=== PATIENT | male | born 1995 | race Caucasian/White ===

== ENCOUNTER 2019-02-16 16:23 | Emergency (ER) | payer OTHER ==
[2019-02-16 16:40] VITALS: BP 140/82
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
== END 2019-02-16 17:55 | disposition home or self-care (01) ==
LOC: ED 16:23
DX: S20.219A Contusion of unspecified front wall of thorax, initial encounter (principal); V53.5XXA Driver of pick-up truck or van injured in collision with car, pick-up truck or van in traffic accident, initial encounter; Y92.410 Unspecified street and highway as the place of occurrence of the external cause
CPT/HCPCS: 71046; 93005; 99283

== ENCOUNTER 2021-01-26 17:33 | Emergency (ER) | payer OTHER ==
[2021-01-26 17:43] VITALS: BP 124/68
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
== END 2021-01-26 18:25 | disposition home or self-care (01) ==
LOC: ED 17:33
DX: S46.911A Strain of unspecified muscle, fascia and tendon at shoulder and upper arm level, right arm, initial encounter (principal); S70.01XA Contusion of right hip, initial encounter; V28.4XXA Motorcycle driver injured in noncollision transport accident in traffic accident, initial encounter; Y92.410 Unspecified street and highway as the place of occurrence of the external cause
CPT/HCPCS: 99281; 99282

== ENCOUNTER 2021-04-18 12:37 | Emergency (ER) | payer OTHER ==
[2021-04-18 13:07] LABS: BASOPHILS % (AUTO) 0.1 %; EOSINOPHILS # (AUTO) 0.1 10^3/uL (0.0-0.7); EOSINOPHILS % (AUTO) 0.6 %; HCT - HEMATOCRIT 49.1 % (42.0-52.0); HGB - HEMOGLOBIN 17.5 g/dL (14.0-18.0); LYMPHOCYTES # (AUTO) 1.8 10^3/uL (1.5-3.5); LYMPHOCYTES % (AUTO) 16.5 %; MEAN CORPUSCULAR HEMOGLOBIN 31.1 pg (27.0-31.0); MEAN CORPUSCULAR HGB CONC 35.6 g/dL (32.0-36.0); MEAN CORPUSCULAR VOLUME 87.2 fL (80.0-94.0); MEAN PLATELET VOLUME 9.2 fL (7.4-11.4); MONOCYTES # (AUTO) 0.6 10^3/uL (0.0-1.0); MONOCYTES % (AUTO) 5.7 %; NEUTROPHILS # (AUTO) 8.2 10^3/uL (1.5-6.6); NEUTROPHILS % (AUTO) 76.9 %; PLT - PLATELET COUNT 319 10^3/uL (130-450); RED BLOOD COUNT 5.63 10^6/uL (4.70-6.10); WHITE BLOOD COUNT 10.6 x10^3/uL (4.8-10.8)
[2021-04-18 13:20] LABS: ALBUMIN 4.8 g/dL (3.2-5.5); ALBUMIN/GLOBULIN RATIO 1.6 (1.0-2.2); BILIRUBIN,TOTAL 2.2 mg/dL (0.2-1.0); CALCIUM 10.1 mg/dL (8.5-10.3); POTASSIUM 3.8 mmol/L (3.5-5.0); TOTAL PROTEIN 7.8 g/dL (6.7-8.2)
[2021-04-18] MEDS ORDERED: ONDANSETRON ODT 4 MG TABLET TL STA (15:24)
[2021-04-18] MEDS ORDERED: FAMOTIDINE 20 MG TABLET PO STA (15:24)
--- NOTE | 2021-04-18 15:24 | ED Physician Documentation ---
History of Present Illness - Stated complaint Stated Complaint: NAUSEA,ABD PX - Chief complaint Chief Complaint: Abd Pain - Additonal information Additional information: 25-year-old male presents emergency department for evaluation of 24 hours abdominal pain. He reports periumbilical pain but points to his epigastrium as the source of discomfort. He reports that the pain has been constant. He has had nausea but no vomiting. No fevers. No melena hematochezia. Denies dysuria urgency frequency. No hematuria. Pain did worsen this morning when he attempted to eat. Described as sharp. No history of similar in the past. No pertinent past surgical history. Takes no prescribed medications. Denies alcohol or tobacco use. Does not use NSAID medications routinely. Review of Systems Constitutional: denies: Fever, Chills Eyes: reports: Reviewed and negative Throat: reports: Reviewed and negative Cardiac: reports: Reviewed and negative Respiratory: reports: Reviewed and negative GI: reports: Abdominal Pain, Nausea. denies: Vomiting, Hematemesis, Bloody / black stool : reports: Reviewed and negative Skin: reports: Reviewed and negative Musculoskeletal: reports: Reviewed and negative PD PAST MEDICAL HISTORY - Past Surgical History Past Surgical History: No - Allergies Allergies/Adverse Reactions: Allergies Allergy/AdvReac Type Severity Reaction Status Date / Time No Known Drug Allergies Allergy Verified 04/18/21 12:52 - Social History Does the pt smoke?: No Smoking Status: Never smoker Does the pt drink ETOH?: No Does the pt have substance abuse?: No - Immunizations Immunizations are current?: No - POLST Patient has POLST: No PD ED PE NORMAL - General General: Alert and oriented X 3, No acute distress - HEENT HEENT: PERRL - Neck Neck: Supple, no meningeal sign, No adenopathy - Cardiac Cardiac: RRR, No murmur, No gallop - Respiratory Respiratory: No respiratory distress, Clear bilaterally - Abdomen Abdomen: Normal bowel sounds, Soft. No: Non tender (Mild tenderness to the epigastrium. Negative Khan's. Negative McBurney's. Unable to elicit any tenderness in the right lower quadrant with deep or light palpation or percussion.) - Back Back: No CVA TTP - Derm Derm: Normal color, Warm and dry, No rash - Extremities Extremities: No deformity Results - Vitals Vitals: Vital Signs - 24 hr 04/18/21 04/18/21 12:49 14:48 Temperature 36.6 C 36.6 C Heart Rate 67 81 Respiratory 16 16 Rate Blood Pressure 130/88 H 126/80 O2 Saturation 99 98 Oxygen O2 Source Room air - Labs Labs: Laboratory Tests 04/18/21 04/18/21 13:03 13:03 WBC 10.6 RBC 5.63 Hgb 17.5 Hct 49.1 MCV 87.2 MCH 31.1 H MCHC 35.6 RDW 12.0 Plt Count 319 MPV 9.2 Neut # (Auto) 8.2 H Lymph # (Auto) 1.8 Archuleta # (Auto) 0.6 Eos # (Auto) 0.1 Baso # (Auto) 0.0 Absolute Nucleated RBC 0.00 Nucleated RBC % 0.0 Sodium 139 Potassium 3.8 Chloride 99 L Carbon Dioxide 28 Anion Gap 12.0 BUN 14 Creatinine 1.0 Estimated GFR (MDRD) 92 Glucose 103 H Calcium 10.1 Total Bilirubin 2.2 H AST 21 ALT 35 Alkaline Phosphatase 64 Total Protein 7.8 Albumin 4.8 Globulin 3.0 Albumin/Globulin Ratio 1.6 Lipase 22 - Rads (name of study) abd US Radiology: Final report received (Unremarkable abdominal ultrasound of the gallbladder and liver) PD MEDICAL DECISION MAKING - ED course Complexity details: reviewed results, re-evaluated patient, considered differential, d/w patient ED course: 25-year-old male presents emergency department for evaluation of 24 hours of nausea and upper abdominal pain in the epigastrium. On exam I was unable to elicit a positive Khan's. He had no pain in the lower abdomen right lower quadrant. No dysuria urgency or frequency. He has had some persistent nausea. Screening labs did not show any worrisome abnormalities with the exception of a bilirubin of 2.2. Patient denies any Personal or family history of Gilbert's syndrome. We did do an abdominal ultrasound did not not show any findings of biliary obstruction or cholecystitis/cholelithiasis. Given lack of fever or vomiting or lower abdominal pain I did defer CT imaging today as my suspicion for acute surgical abdomen or appendicitis is rather low. Patient was given Pepcid here in the ER with good improvement in the epigastric pain and nausea. I do suspect he may have a mild gastritis. Will recommend Pepcid and the Zofran at home. Close follow-up with primary care provider to discuss the mildly elevated bilirubin. Departure - Departure Disposition: 01 Home, Self Care Clinical Impression: Epigastric pain, Nausea, Elevated bilirubin Condition: Stable Record reviewed to determine appropriate education?: Yes Comments: Dar you were seen today in the emergency department for about 24 hours of upper abdominal pain and some persistent nausea. Your screening labs do not show any worrisome findings with the exception of a very mild bilirubin elevation of just over 2. We did do an ultrasound of your abdomen to evaluate the liver and gallbladder did not find any thing to suggest gallbladder inflammation or biliary obstruction. There is a condition called Gilbert's disease that can sometimes be familial and cause a mild bilirubin elevation. Please discuss this with your primary doctor. I do suspect that the epigastric pain you had is a mild gastritis. I do recommend that you take an [id number] acid head sampler such as Pepcid once or twice a day for the next 2 to 3 days. Continue to use your Zofran. If at any point you find your symptoms worsen, you develop fevers, have uncontrolled vomiting sudden severe or different pain then please return to the ER for second evaluation.
--- NOTE | 2021-04-18 16:36 | Ultrasound Report ---
PROCEDURE: Abdomen Limited INDICATIONS: elevated bilirubin TECHNIQUE: Real-time focused scanning was performed of the abdomen, with image documentation. COMPARISON: None FINDINGS: Liver is normal in size. Increased liver parenchymal echotexture is seen suggestive of hepatic steato sis. No discrete hepatic lesion. There is no gallstone. No gallbladder wall thickening or pericholecystic fluid. No sonographic Khan 's sign. There is no intrahepatic biliary ductal dilatation. Common bile that measures 2 mm in diameter and is within normal limits. Visualized portion of pancreas shows no gross abnormality. Right kidney measures 12 cm in length and 1.3 cm in renal cortical thickness. No solid-appearing armani l lesion or hydronephrosis. IVC is patent. IMPRESSION: Hepatic steatosis. No discrete hepatic lesion. Normal-appearing gallbladder. No biliary ductal dilata tion. Reviewed by: Jesus Kirk MD on 04/18/2021 4:34 PM PST Approved by: Jesus Kirk MD on 04/18/2021 4:34 PM PST Station ID: [id number]
[2021-04-18 16:39] VITALS: BP 127/86
== END 2021-04-18 16:39 | disposition home or self-care (01) ==
LOC: ED 12:37
DX: R10.13 Epigastric pain (principal); R11.0 Nausea; R79.89 Other specified abnormal findings of blood chemistry
CPT/HCPCS: 36415; 76705; 80053; 83690; 85025; 99282; 99284; A9270; Q0162; 81001; 81003; 87086

== ENCOUNTER 2022-02-07 16:43 | Emergency (ER) | payer OTHER ==
[2022-02-07 17:24] VITALS: BP 126/89
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
== END 2022-02-07 18:42 | disposition home or self-care (01) ==
LOC: ED 16:43
DX: U07.1 COVID-19 (principal); B34.9 Viral infection, unspecified
CPT/HCPCS: 99282; 99283

== ENCOUNTER 2022-03-20 10:14 | Day surgery (SDC) | payer OTHER ==
[2022-03-20] MEDS ORDERED: PROPOFOL 500 MG/50 ML 500 MG/50 ML VIAL ONE (10:26)
[2022-03-20] MEDS ORDERED: LACTATED RINGERS 1,000 ML IV ONE (10:29)
--- NOTE | 2022-03-20 11:00 | ANESTHESIA ---
Pre-Anesthesia VS, & Labs - Diagnosis esquivel syndome - Procedure colonoscopy Vital Signs: Temp Pulse Resp BP Pulse Ox O2 Flow Rate 36.8 C 72 16 128/88 H 95 0 03/20/22 10:29 03/20/22 10:29 03/20/22 10:29 03/20/22 10:29 03/20/22 10:29 03/20/22 10:29 Height: 5 ft 8 in Weight (kg): 86.4 kg Body Mass Index: 28.9 BMI Classification: Overweight - NPO >8 hours Home Medications and Allergies No Known Home Medications 02/07/22 Allergies/Adverse Reactions: Allergies Allergy/AdvReac Type Severity Reaction Status Date / Time No Known Drug Allergies Allergy Verified 03/19/22 13:10 Anes History & Medical History - Anesthetic History Anesthesia Complications: reports: No previous complications Family history of Anesthesia Complications: Denies Family history of Malignant Hyperthermia: Denies - Medical History Cardiovascular: reports: None Pulmonary: reports: None Gastrointestinal: reports: None Urinary: reports: None Musculoskeletal: reports: None Endocrine/Autoimmune: reports: None Skin: reports: None Smoking Status: Never smoker Exam General: Alert, Oriented x3, Cooperative Dental: WNL Mouth Openin Fingerbreadth Neck Mobility: Normal Mallampati classification: I Thyromental Distance: 4-6 cm Respiratory: Lungs clear Cardiovascular: Regular rate Plan Anesthesia Type: Total IV Consent for Procedure(s) Verified and Reviewed: Yes Code Status: Attempt Resuscitation ASA classification: 2-Mild systemic disease Is this case an emergency?: No
[2022-03-20] MEDS ORDERED: PROPOFOL 200 MG/20 ML VIAL IVP ONE (11:27)
[2022-03-20] MEDS ORDERED: LACTATED RINGERS 200 ML IV ONE (11:45)
[2022-03-20 12:24] VITALS: BP 104/82
--- NOTE | 2022-03-20 14:02 | ANESTHESIA POST OP EVALUATION ---
Anesthesia Post Eval - Post Anesthesia Eval Vitals: Last Vital Signs Temp 36.1 C L 03/20/22 11:55 Pulse 77 03/20/22 12:22 Resp 21 03/20/22 12:22 BP 104/82 H 03/20/22 12:22 Pulse Ox 95 03/20/22 12:22 O2 Flow Rate 0 03/20/22 10:29 CV Function Including HR & BP: Stable Pain Control: Satisfactory Nausea & Vomiting: Negative Mental Status: Baseline Respiratory Status: Airway Patent Hydration Status: Satisfactory Anesthesia Complications: None
== END 2022-03-20 10:15 | disposition home or self-care (01) ==
LOC: SDS 10:14
PROVIDERS: ATTEND Surgery
DX: Z12.11 Encounter for screening for malignant neoplasm of colon (principal); Z84.81 Family history of carrier of genetic disease; Z15.09 Genetic susceptibility to other malignant neoplasm
CPT/HCPCS: 45378; J7120